=== PATIENT | female | born 1945 | race American Indian/Alaskan Native ===

== ENCOUNTER 2017-01-27 12:02 | Outpatient (CLI) | payer MEDICARE ==
--- NOTE | 2017-01-27 12:42 | XRay Report ---
CHEST 2 VIEWS INDICATION: Hypertension, chronic CHF. COMPARISON: None similar. FINDINGS: PA and lateral chest radiographs demonstrate normal cardiomediastinal silhouette. Mild aortic knob calcifications. Clear lungs. Intact bones. CONCLUSION: No acute disease in the chest. Thank you for the opportunity to participate in this patient's care.
== END 2017-01-27 12:03 | disposition home or self-care (01) ==
LOC: SPVIMAG 12:02
PROVIDERS: ATTEND Internal Medicine
DX: I11.0 Hypertensive heart disease with heart failure (principal); I50.22 Chronic systolic (congestive) heart failure; I70.0 Atherosclerosis of aorta
CPT/HCPCS: 71020